=== PATIENT | female | born 1965 | race Caucasian/White ===

== ENCOUNTER → 2020-02-25 | Outpatient (CLI) | payer OTHER ==
--- NOTE | 2020-02-25 13:18 | RAD ---
EXAMINATION: KNEE LEFT 3V CLINICAL HISTORY: Left knee pain TECHNIQUE: KNEE LEFT 3V Number of images/views: 3 COMPARISON: None FINDINGS: Joint spaces and alignment maintained. No acute fracture. Question trace joint effusion. IMPRESSION: No acute osseous abnormality. Electronically signed by: Bob Negron DO (02/25/2020 1:16 PM) [id number]
== END | disposition home or self-care (01) ==
LOC: DXRAD 12:54
PROVIDERS: ATTEND Physician Assistant
DX: M25.562 Pain in left knee (principal)
CPT/HCPCS: 73562